=== PATIENT | female | born 1980 | race African-American/Black ===

== ENCOUNTER 2017-07-22 05:10 | Day surgery (SDC) | payer OTHER ==
[2017-07-20 12:09] VITALS: BMI 38.5
[2017-07-22] MEDS ORDERED: IBUPROFEN 400 MG TABLET (FP) PO PRN (08:15)
[2017-07-22] MEDS ORDERED: ACETAMINOPHEN 325 MG TABLET (FP) PO PRN (08:15)
--- NOTE | 2017-07-22 08:15 | HP ---
History & Physical Update - History History: No Change - Physical Physical: No Change - Assessment Assessment: No Change - Plan Plan: No Change
--- NOTE | 2017-07-22 08:17 | OP ---
Operative Note - Note: Operative Date: 07/22/17 Pre-Operative Diagnosis: Missed Operation: Suction DC Post-Operative Diagnosis: Same as Pre-op Surgeon: Hyacinth Gonzalez Anesthesia: General Operative Report Dictated: Yes
[2017-07-22] MEDS ORDERED: MIDAZOLAM HCL 2 MG/2 ML SINGLE DOSE VIAL ONE ×2 (10:00)
[2017-07-22] MEDS ORDERED: PROPOFOL 20 ML ONE ×2 (10:11)
[2017-07-22] MEDS ORDERED: ONDANSETRON 4 MG/2 ML VIAL IVPUSH PRN (10:40)
[2017-07-22] MEDS ORDERED: PROMETHAZINE HCL 25 MG/1 ML VIAL IVPUSH PRN (10:40)
[2017-07-22] MEDS ORDERED: LACTATED RINGERS SOLUTION 1,000 ML IV SCH (10:45)
--- NOTE | 2017-07-22 10:46 | OP ---
DATE OF OPERATION: 07/22/2017 PREOPERATIVE DIAGNOSIS: Missed . OPERATION: Suction dilation and curettage. POSTOPERATIVE DIAGNOSIS: Missed . SURGEON: Hyacinth Gonzalez MD DESCRIPTION OF PROCEDURE: The patient was taken to the operating room, placed in dorsal lithotomy position, prepped and draped in the usual sterile fashion. A time-out was performed in accordance with hospital regulation. Speculum was placed in the vagina after general anesthesia had been given. Cervix was then dilated to accommodate No. 8 suction curette. Suction curettage was done. Some mild distortion of the cavity was possibly felt due to fibroid. All curettings were sent to Pathology for chromosomal analysis. All instruments were then removed. The patient tolerated the procedure well. Estimated blood loss was 40 mL. The patient was taken to the recovery room in stable condition. HYACINTH GONZALEZ M.D. MEERALD/[id number]
[2017-07-22 12:01] VITALS: TEMP 98.3
[2017-07-22 13:53] VITALS: BP 100/54; PULSE 60
--- NOTE | 2017-07-25 15:55 | PATH ---
Surgical Pathology Report Patient Name: KAREN SY Med. Rec. #: [id number] /Age/Gender: 1980 (Age: 36) / F Account: [id number] Location: [facility] SURGICAL Taken: 07/22/2017 Received: 07/22/2017 Reported: 07/25/2017 Physicians: Hyacinth Gonzalez M.D. Specimen(s) Received PRODUCTS OF CONCEPTION, CHROMOSOMAL STUDIES Clinical History Missed Final Diagnosis PRODUCTS OF CONCEPTION, DILATATION AND CURETTAGE: IMMATURE CHORIONIC VILLI, GESTATIONAL ENDOMETRIUM, AND DECIDUA CONSISTENT WITH PRODUCTS OF CONCEPTION. CHROMOSOMAL ANALYSIS IS PENDING. RESULTS WILL BE REPORTED AN ADDENDUM. Electronically Signed Tonia Lee M.D. Gross Description Received fresh labeled "products of conception," is a 7.5 x 6.0 x 1.2 cm aggregate of [facility] red soft tissue fragments. Villous tissue is identified. No somatic tissue is identified. A insurance verification representative portion is placed in RPMI solution and sent for chromosomal studies. An additional insurance verification representative portion is submitted in one cassette. 07/22/2017 saudi07/22/2017
== END 2017-07-22 13:40 | disposition home or self-care (01) ==
LOC: JASU-SURG 05:10
PROVIDERS: ATTEND Obstetrics & Gynecology
PROC: 10D17ZZ Extraction of Products of Conception, Retained, Via Natural or Artificial Opening (ICD-10-PCS; principal; 2017-07-22 09:00)
DX: O02.1 Missed abortion (principal)
CPT/HCPCS: 88305-TC; 94760